=== PATIENT | female | born 1950 | race Caucasian/White ===

== ENCOUNTER → 2016-12-14 | Outpatient (CLI) | payer MEDICARE, BC ==
[~2016-12-14] MED LIST: AMLODIPINE-BENA1 CAP PO; AMLODIPINE-OLM1 EAC1; ASPIRIN PO; FLONASE 0.05% N16 G1; HYDROCORTISONE30 G2 EXT; LASIX20 MG PO; LIPITOR PO; LOTENSIN20 MG PO; NORVASC PO; TARKA PO; WARFARIN SODIU7.5 M1 PO; XARELTO15 MG PO; ZOCOR20 MG PO
--- NOTE | ~2016-12-14 | CT2 ---
[facility] A Service of [facility] RADIOLOGY TEXT RESULTS PATIENT: MEAGHAN HAYWARD LOCATION: [facility] : 50 UNIT #: [id number] AGE: [address]: Andrea Nelson MD SEX: F ORDER DR: [id number] [address] [address] [id number] O MR#: [id number] Acc #: [id number] NAME: MEAGHAN HAYWARD : 1950 SEX: F STUDY DATE/TIME: 12/14/2016 13:24 UNIT: [facility] ROOM: STUDY DESCRIPTION: CT Abd and Pelv W Cont Attending Physician: Andrea Nelson M.D. Referring Physician: Andrea Nelson M.D. Ordering Physician: Andrea Nelson M.D. Primary Care Physician: Agustina Carpio M.D. MEDICAL IMAGING REPORT This report is preliminary unless electronic signature is present. EXAM CT abdomen and pelvis, 12/14/2016 INDICATION Phlebitis and thrombophlebitis. DVT in the left leg. 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 TECHNIQUE CT of the abdomen and pelvis with p.o. and IV contrast (100 mL Isovue-370 IV contrast). Coronal and sagittal reconstructions were obtained. This CT exam was performed with one or more of the following radiation dose reduction techniques: automatic exposure control, adjustment of mA and/or kV according to patient size, and iterative reconstruction. COMPARISON CT chest dated 11/01/2016 and 10/21/2012. FINDINGS The liver, gallbladder, pancreas, spleen, and kidneys are within normal limits. There is a 2.4 cm left adrenal adenoma which is unchanged from at least 2012. The bowel is not dilated. There are a few left-sided colonic diverticula, however no diverticulitis. The appendix is normal. The abdominal aorta is normal in caliber. PELVIS: There is no pelvic mass. There is no extrinsic mass effect on the iliac veins. No enlarged pelvic or inguinal lymph nodes. The bladder is unremarkable. The uterus is surgically absent. The ovaries are either atrophic or surgically absent as above. There are some mild degenerative changes of the lower thoracic and lumbar spine. No acute osseous abnormalities. [facility] A Service of [facility] RADIOLOGY TEXT RESULTS PATIENT: MEAGHAN HAYWARD LOCATION: [facility] : 50 UNIT #: [id number] AGE: [address]: Andrea Nelson MD SEX: F ORDER DR: IMPRESSION 1. No acute findings in the abdomen and pelvis. No pelvic mass to account for the recurrence deep vein thrombosis of the lower extremities. 2. Occasional colonic diverticula. Dictated by... Eugene Antonio M.D. THIS IS AN ELECTRONICALLY VERIFIED REPORT Eugene Antonio M.D. at 12/15/2016 12:12 PM ABDULLAHI/david TD: 12/14/2016 22:34 JOB #: [id number] MEDICAL IMAGING REPORT
[2016-12-14 12:06] LABS: POC - CREATININE 1.13 mg/dL (0.44-1.03)
== END | disposition home or self-care (01) ==
LOC: SCT 11:35
PROVIDERS: Internal Medicine Medical Oncology
DX: I80.00 Phlebitis and thrombophlebitis of superficial vessels of unspecified lower extremity (principal); K57.30 Diverticulosis of large intestine without perforation or abscess without bleeding
CPT/HCPCS: 74177; 82565; Q9967

== ENCOUNTER → 2017-01-03 | Day surgery (SDC) | payer MEDICARE, BC ==
--- NOTE | ~2017-01-03 | OR ---
Unit #: [id number] #: [id number] Patient: MEAGHAN HAYWARD [id number] [address] [place], [place] [address] [id number] O MR#: [id number] NAME: MEAGHAN HAYWARD ROOM: Date of Procedure: 01/03/2017 Admission Date: 01/03/2017 Surgeon: Arnulfo Mcmillan M.D. : 1950 Attending Physician: Arnulfo Mcmillan M.D. Referring Physician: Arnulfo Mcmillan M.D. Primary Care Physician: Agustina Carpio M.D. OPERATIVE REPORT PRIMARY CARE PHYSICIAN Agustina Carpio M.D. PREOPERATIVE DIAGNOSIS Colorectal cancer screening in an average-risk patient. PROCEDURES PERFORMED Colonoscopy and polypectomy. POSTOPERATIVE DIAGNOSES 1. The patient had a polyp in the descending colon. This was about a centimeter in size. It was removed using snare cautery polypectomy. They were two small sessile polyps in the sigmoid, which were also removed using snare polypectomy. 2. Mild sigmoid and descending colon diverticulosis. 3. Rest of the examination up to cecum was normal. The quality of the prep was excellent. RECOMMENDATIONS Follow up the results of polyp histology and consider repeat colonoscopy in 5 years. SEDATION USED MAC. DESCRIPTION OF PROCEDURE Following detailed explanation of the potential risks and complications of a colonoscopy, namely perforation, bleeding, and complication related to sedation, the patient was brought to GI lab and laid in the left lateral decubitus position. A digital rectal examination was performed, which was normal. Lubricated tip of the Olympus video colonoscope was inserted through the anus and advanced under direct vision. The scope was advanced past rectosigmoid into descending colon. Multiple small diverticula were noted in this area. The scope tip was then navigated all the way up to cecum with visualization of the ileocecal valve and the appendiceal orifice. Preparation was excellent with good visualization and photodocumentation was obtained. Successive segments of the colonic mucosa were examined upon withdrawal. A 1 cm sessile polyp was noted in the mid descending colon. The latter was removed using snare cautery polypectomy. The polyp was retrieved and sent for histology. Two small sessile polyps in the sigmoid colon were also removed using snare polypectomy. These were about 4 to 5 mm each and were removed and sent Unit #: [id number] #: [id number] Patient: MEAGHAN HAYWARD for histology. No additional polyps were noted. Other than the fact the patient had diffuse diverticulosis, no other abnormalities were noted. The patient did not have any internal hemorrhoids at the anal verge. The scope was then withdrawn and the patient returned to recovery area. She tolerated the procedure without any postprocedure complications. Dictated by... Izabella Cordero/giancarlo TD: 01/04/2017 01:28 JOB #: [id number] CC: Agustina Carpio M.D. OPERATIVE REPORT Page 1 of 1 X Arnulfo Mcmillan MD X PROCEDURE OPERATIVE NOTE
== END | disposition home or self-care (01) ==
LOC: COPS 08:36
DX: Z12.11 Encounter for screening for malignant neoplasm of colon (principal); D12.4 Benign neoplasm of descending colon; D12.5 Benign neoplasm of sigmoid colon; K57.30 Diverticulosis of large intestine without perforation or abscess without bleeding; Z79.01 Long term (current) use of anticoagulants
CPT/HCPCS: 88305